=== PATIENT | female | born 1970 | race Caucasian/White ===

== ENCOUNTER 2020-03-19 15:15 | Outpatient (CLI) | payer OTHER, SELFPAY ==
--- NOTE | ~2020-03-19 | MM_ITS ---
EXAMINATION: MM screening [facility] BI w [facility] HISTORY: Screening mammogram TECHNIQUE: Craniocaudal and mediolateral oblique 3-D tomosynthesis images were obtained and synthetic 2-D images were generated. CAD analysis was submitted and interpreted. COMPARISON: 01/06/2019 diagnostic left digital mammogram and limited left breast ultrasound 12/22/2018 bilateral digital screening mammogram 11/17/2017 bilateral digital screening mammogram BREAST PARENCHYMAL COMPOSITION: The breasts are heterogeneously dense, which may obscure small masses . FINDINGS: Circumscribed 4.4 x 7 mm mass is noted in the inner mid left breast (craniocaudal Tomosynth esis image 43/89; MLO Tomosynthesis image 43/83). Approximately 1.9 cm circumscribed mass with halo sign in the inner aspect of the lower outer quadran t of the left breast, likely benign, most likely a cyst. Diagnostic left mammogram and left breast ultrasound examination are recommended. The heterogeneous dense stroma of each breast might obscure masses. Consider complete bilateral breas t ultrasound as clinically preferred by patient and referring physician. There is no evidence of suspicious mass, calcification, or architectural distortion to suggest malign femi in either breast otherwise. There has been no other suspicious interval change. IMPRESSION: 1. Left breast masses 2. Diagnostic left mammogram and left breast ultrasound examination are recommended. BI-RADS Category 0: Incomplete: Needs additional imaging evaluation. Reviewed, dictated and finalized at location A. IMPRESSION: 1. Left breast masses 2. Diagnostic left mammogram and left breast ultrasound examination are recomme nded. BI-RADS Category 0: Incomplete: Needs additional imaging evaluation.
== END 2020-03-19 15:16 | disposition home or self-care (01) ==
LOC: ANHIMG 15:16
PROVIDERS: PCP Internal Medicine; Visit Provider Student in an Organized Health Care Education/Training Program
DX: Z12.31 Encounter for screening mammogram for malignant neoplasm of breast (principal); R92.8 Other abnormal and inconclusive findings on diagnostic imaging of breast
CPT/HCPCS: 77063; 77067

== ENCOUNTER 2020-04-09 11:34 | Outpatient (CLI) | payer OTHER, SELFPAY ==
--- NOTE | ~2020-04-09 | MMUS_ITS ---
EXAMINATION: MM diagnostic mammo unilat LT, US breast LT limited HISTORY: Left breast mass on screening mammogram TECHNIQUE: Additional 3-D tomosynthesis images of the left breast were performed and synthetic 2-D im ages were generated. CAD analysis was submitted and interpreted. High resolution limited left breast ultrasound was performed. COMPARISON: 03/11/2020, 01/06/2019, 12/22/2018, 11/17/2017 FINDINGS: MAMMOGRAPHIC FINDINGS: There is a 9 mm oval, circumscribed, equal density mass in the posterior third of the breast at the 1 1:00 location 5 cm from the nipple. ULTRASOUND: There is a 10 mm x 3 mm oval, circumscribed, parallel, hypoechoic mass with no posterior features or internal vascularity at the 12:00 location 5 cm from the nipple. IMPRESSION: 1. Probably benign left breast mass. 2. Recommend 6 month follow-up left diagnostic mammogram and ultrasound. BI-RADS category 3, probably benign findings. Reviewed, dictated and finalized at location A. IMPRESSION: 1. Probably benign left breast mass. 2. Recommend 6 month follow-up left diagnostic mammogram and ultrasound. BI-RADS category 3, probably benign findings.
== END 2020-04-09 11:35 | disposition home or self-care (01) ==
PROVIDERS: PCP Internal Medicine; Visit Provider Student in an Organized Health Care Education/Training Program
DX: R92.8 Other abnormal and inconclusive findings on diagnostic imaging of breast (principal)
CPT/HCPCS: 76642; 77065

== ENCOUNTER 2020-10-18 12:16 | Outpatient (CLI) | payer OTHER, SELFPAY ==
--- NOTE | ~2020-10-18 | MMUS_ITS ---
EXAMINATION: MM diagnostic [facility] LT w [facility], US breast LT limited HISTORY: Six-month follow-up for probably benign left breast mass TECHNIQUE: Craniocaudal, mediolateral, and mediolateral oblique 3-D tomosynthesis images of the left breast were performed and synthetic 2-D images were generated. CAD analysis was submitted and interpr eted. High resolution limited left breast ultrasound was performed. COMPARISON: 04/09/2020, 03/19/2020, 01/06/2019, 12/22/2018 BREAST PARENCHYMAL COMPOSITION: The breasts are heterogeneously dense, which may obscure small masses . FINDINGS: MAMMOGRAPHIC FINDINGS: There is a stable 9 mm oval, circumscribed, equal density mass in the posterior third of the left sharda ast at the 11:00 location 5 cm from the nipple. There has been no suspicious interval change. No susp icious architectural distortion is identified. ULTRASOUND: There is a stable 9 mm x 3 mm oval, circumscribed, parallel, hypoechoic mass with no posterior featur es or internal vascularity at the 12:00 location 5 cm from the nipple. IMPRESSION: 1. Stable, probably benign left breast mass. 2. Recommend 6 month follow-up left diagnostic mammogram and ultrasound. BI-RADS category 3, probably benign findings. Reviewed, dictated and finalized at location A. HT INSPECTOR IMPRESSION: 1. Stable, probably benign left breast mass. 2. Recommend 6 month follow-up left diagnostic mammogram and ultrasound. BI-RADS category 3, probably benign findings.
== END 2020-10-18 12:17 | disposition home or self-care (01) ==
LOC: ANHIMG 12:17
PROVIDERS: PCP Internal Medicine; Visit Provider Student in an Organized Health Care Education/Training Program
DX: N63.20 Unspecified lump in the left breast, unspecified quadrant (principal)
CPT/HCPCS: 76642; 77061; 77065; G0279

== ENCOUNTER 2021-04-25 12:01 | Outpatient (CLI) | payer OTHER, SELFPAY ==
--- NOTE | ~2021-04-25 | MMUS_ITS ---
EXAMINATION: MM diagnostic [facility] BI w [facility], US breast LT limited HISTORY: Follow-up left breast mass TECHNIQUE: Additional 3-D tomosynthesis images of the breasts were performed and synthetic 2-D images were generated. CAD analysis was submitted and interpreted. High resolution Limited left breast ultr asound was performed. COMPARISON: Comparison to multiple prior studies sequentially, with oldest reviewed study dated 11/17. BREAST PARENCHYMAL COMPOSITION: The breasts are heterogenously dense, which may obscure small masses. FINDINGS: MAMMOGRAPHIC FINDINGS: The breasts are stable. No new masses, calcifications or architectural distortion in either breast to suggest malignancy. ULTRASOUND: Limited left breast ultrasound: There are mildly prominent ducts. There are subareolar cysts measurin g up to 8 mm. No suspicious masses to suggest malignancy. IMPRESSION: 1. No evidence for malignancy in either breast. 2. Routine yearly screening mammogram and regular clinical breast examination are recommended. BI-RADS Category 2: Benign finding(s). Reviewed, dictated and finalized at location A. IMPRESSION: 1. No evidence for malignancy in either breast. 2. Routine yearly screening mammogram and regular clinical breast examination a re recommended. BI-RADS Category 2: Benign finding(s).
== END 2021-04-25 12:02 | disposition home or self-care (01) ==
LOC: ANHIMG 12:02
PROVIDERS: PCP Internal Medicine; Visit Provider Student in an Organized Health Care Education/Training Program
DX: N63.20 Unspecified lump in the left breast, unspecified quadrant (principal); N60.02 Solitary cyst of left breast
CPT/HCPCS: 76642; 77061; 77062; 77065; 77066; G0279

== ENCOUNTER 2022-07-10 01:13 | Day surgery (SDC) | payer OTHER, SELFPAY ==
[2022-07-01 13:30] VITALS: BMI 22.9
[2022-07-10 08:07] VITALS: BP 115/71; PULSE 76; RESP 18; TEMP 36.1; O2SAT 100
--- NOTE | 2022-07-10 08:10 | P.PNAN_ITS ---
Anes - Initial Pre Proc Eval Procedure: Operation Date: 07/10/22 09:30 Proposed Procedures p Screening Colonoscopy - Lenin Koch MD Date/Time: 07/10/22 08:10 Surgeon: Lenin Koch MD Pre Op Diagnosis: Neoplasm Screening Patient Data Age: 51 Gender: F Height: 1.78 m Weight: 80.3 kg Last Vital Signs Temp 36.1 C L 07/10/22 08:07 Pulse 76 07/10/22 08:07 Resp 18 07/10/22 08:07 BP 115/71 07/10/22 08:07 Pulse Ox 100 07/10/22 08:07 O2 Del Method Room Air 07/10/22 08:07 Allergies Allergy/AdvReac Type Severity Reaction Status Date / Time No Known Allergies Allergy Unknown Verified 07/10/22 08:06 Home Medications Medication Instructions Recorded Confirmed Type B-complex with vitamin C 1 cap PO DAILY 04/08/21 07/01/22 History cholecalciferol (vitamin D3) 50 50 mcg PO DAILY 04/08/21 07/01/22 History mcg (2,000 unit) capsule norethindrone acetate 1 mg-ethinyl See Rx Instructions .Route 05/12/22 07/01/22 Rx estradiol 20 mcg tablet (Junel) .COMPLEX #84 tabs Patient hx anesthesia problems: none Family hx anesthesia problems: none Results Review: All pre-operative results and documents have been reviewed as part of the pre- operative evaluation. PMFSH Past Medical History Medical History Elevated lipids Migraines Thyroid disease Vaginal delivery x 2 Surgical History Surgical History [place] teeth extracted Family History Family History Father Diabetes mellitus, Onset Age: 72 Family history of liver disease, Onset Age: 72 Mother Family history of hypercholesterolemia Hypertension Patient's mother is in good health Social History Social History Smoking status: Never smoker Smoking end date: 08/23/04 Alcohol intake: current Drinks per week: 2 Substance use: never Substance use type: does not use Living arrangements: with family Spiritual care concerns: No Anes - Eval Final PreProcedure Day of Procedure 07/10/22 08:10 Patient weight: overweight Heart: regular rate and rhythm Lungs: clear to auscultation Airway: Mallampati scale class II Neurological: alert and oriented Last oral intake: >/= 8 hours ASA classification: II Emergent: no Anesthetic plan: proceed Anesthesia type and monitoring: general GIVS and standard monitoring Results Review: All pre-operative results and documents have been reviewed as part of the pre-operative evaluation. Informed Consent: The patient's anesthetic plan and its attendant risks and benefits were discussed with the patient/family/POA. Questions were solicited and answers provided to the satisfaction of the patient/family/POA.
[2022-07-10] MEDS: LACTATED RINGERS 1,000 ML 150 ML IV CONT (08:33)
--- NOTE | 2022-07-10 08:34 | SUR.PREOP ---
Pt unable to urinate. Urine test waived per anesthesiologist Dr. Mcconnell.
--- NOTE | 2022-07-10 08:38 | PM.HPGS ---
History of Present Illness History of Present Illness Consent: Risks, benefits, and alternatives have been discussed and questions answered. Patient agrees to proceed with procedure. Chief complaint: Neoplasm Screening Narrative: Michelle Mcginnis is a 51 year old female here for first screening colonoscopy Review of Systems Constitutional: Constitutional: Denies headache(s) and Denies weakness Eyes: Eyes: Denies blurry vision ENT: Reports Normal hearing present, Denies headache(s) and Denies neck pain Cardiovascular: Cardiovascular: Denies chest pain and Denies dyspnea Respiratory: Respiratory: Denies dyspnea Gastrointestinal: Gastrointestinal: Reports no additional gastrointestinal complaints Genitourinary: Genitourinary: Denies dysuria Musculoskeletal: Musculoskeletal: Denies neck pain Integumentary/Breasts: Skin/Breast: Denies dry skin Neurologic: Reports Normal hearing present, Denies headache(s) and Denies weakness Psychiatric: Psychiatric: Denies anxiety Endocrine: Endocrine: Denies change in body appearance Hematologic/Lymphatic: Hematologic/Lymphatic: Denies easy bleeding Allergic/Immunologic: Allergic/Immunologic: Denies urticaria PMF Past Medical History Medical History (Updated 07/10/22 @ 08:38 by Lenin Koch MD) Colon cancer screening Elevated lipids Migraines Thyroid disease Vaginal delivery x 2 Surgical History Surgical History [place] teeth extracted Family History Family History Father Diabetes mellitus, Onset Age: 72 Family history of liver disease, Onset Age: 72 Mother Family history of hypercholesterolemia Hypertension Patient's mother is in good health Social History Social History Smoking status: Never smoker Smoking end date: 08/23/04 Alcohol intake: current Drinks per week: 2 Substance use: never Substance use type: does not use Living arrangements: with family Spiritual care concerns: No Meds Home Medications and Allergies Home Medications Medication Instructions Recorded Confirmed Type B-complex with vitamin C 1 cap PO DAILY 04/08/21 07/01/22 History cholecalciferol (vitamin D3) 50 50 mcg PO DAILY 04/08/21 07/01/22 History mcg (2,000 unit) capsule norethindrone acetate 1 mg-ethinyl See Rx Instructions .Route 05/12/22 07/01/22 Rx estradiol 20 mcg tablet () .COMPLEX #84 tabs Allergies Allergy/AdvReac Type Severity Reaction Status Date / Time No Known Allergies Allergy Unknown Verified 07/10/22 08:06 Vital Signs Vital Signs - 24 hr 07/10/22 08:07 Temperature 97 F L Pulse Rate 76 Respiratory Rate 18 Blood Pressure 115/71 Pulse Oximetry 100 Oxygen Delivery Room Air Exam Const: General: comfortable and no acute distress HENMT: Face/Nose/Sinus: Normal nares present Eyes: General: appearance normal, both eyes and all related structures Neck: Neck: no JVD Resp: Auscultation: clear to auscultation bilaterally Cardio: Rate: regular rate Rhythm: regular rhythm GI: Inspection: non-distended GI Palp: Yes Soft to palpation Skin: General skin exam: normal color Neuro: General: gait normal Speech: normal speech Extrem: General: normal to inspection Psych: Mental Status: mental status grossly normal Assessment and Plan Assessment and plan (1) Colon cancer screening: Code(s): Z12.11 - Encounter for screening for malignant neoplasm of colon Status: Acute Assessment and Plan: colonoscopy
[2022-07-10 09:00] VITALS: BP 106/67; PULSE 83; RESP 23; O2SAT 100
[2022-07-10 09:10] VITALS: BP 110/69; PULSE 61; RESP 19; O2SAT 100
[2022-07-10 09:20] VITALS: BP 116/67; PULSE 70; RESP 18; O2SAT 98
== END 2022-07-10 09:49 | disposition home or self-care (01) ==
PROVIDERS: PCP Internal Medicine; Visit Provider Internal Medicine Gastroenterology
PROC: 0DJD8ZZ Inspection of Lower Intestinal Tract, Via Natural or Artificial Opening Endoscopic (ICD-10-PCS; CPT 45378; principal; 2022-07-10 09:30)
DX: Z12.11 Encounter for screening for malignant neoplasm of colon (principal); D12.2 Benign neoplasm of ascending colon; K63.5 Polyp of colon; K64.8 Other hemorrhoids
CPT/HCPCS: 45385; 88305; J2704; J7120

== ENCOUNTER 2022-07-25 09:54 | Outpatient (CLI) | payer OTHER, SELFPAY ==
--- NOTE | ~2022-07-25 | MM_ITS ---
EXAMINATION: MM screening [facility] BI w [facility] HISTORY: Screening mammogram TECHNIQUE: Craniocaudal and mediolateral oblique 3-D tomosynthesis images were obtained and synthetic 2-D images were generated. CAD analysis was submitted and interpreted. COMPARISON: 04/25/2021, 10/18/2020, 04/09/2020, 03/19/2020 BREAST PARENCHYMAL COMPOSITION: The breasts are heterogeneously dense, which may obscure small masses . FINDINGS: A stable mass in the upper inner quadrant of the left breast is considered benign given the lack of interval change. No suspicious mass, calcification, or architectural distortion are identifi ed in either breast to suggest malignancy. There has been no suspicious interval change. IMPRESSION: 1. No mammographic evidence of malignancy. 2. Recommend routine screening mammography in one year. BI-RADS Category 2: Benign finding(s). Reviewed, dictated and finalized at location A. 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
== END 2022-07-25 09:55 | disposition home or self-care (01) ==
PROVIDERS: PCP Internal Medicine; Visit Provider Student in an Organized Health Care Education/Training Program
DX: Z12.31 Encounter for screening mammogram for malignant neoplasm of breast (principal)
CPT/HCPCS: 77063; 77067

== ENCOUNTER 2023-08-03 08:28 | Outpatient (CLI) | payer OTHER, SELFPAY ==
--- NOTE | ~2023-08-03 | MM_ITS ---
EXAMINATION: MM screening [facility] BI w [facility] HISTORY: Screening TECHNIQUE: Craniocaudal and mediolateral oblique 3-D tomosynthesis images were obtained and synthetic 2-D images were generated. CAD analysis was submitted and interpreted. COMPARISON: Comparison to multiple prior studies sequentially, with oldest reviewed study dated 06/24. BREAST PARENCHYMAL COMPOSITION: Breast composed of scattered areas of fibroglandular density FINDINGS: There are developing asymmetries in the mid outer aspect of the right breast, middle third and central aspect of the left breast middle third, best seen on CC views. IMPRESSION: 1. Developing bilateral breast asymmetries. 2. Additional mammographic views and possible breast ultrasound are recommended. BI-RADS Category 0: Incomplete: Needs additional imaging evaluation. Reviewed, dictated and finalized at location A. O FINISHER IMPRESSION: 1. Developing bilateral breast asymmetries. 2. Additional mammographic views and possible breast ultrasound are recommended . BI-RADS Category 0: Incomplete: Needs additional imaging evaluation.
== END 2023-08-03 08:29 | disposition home or self-care (01) ==
PROVIDERS: PCP Internal Medicine; Visit Provider Obstetrics & Gynecology
DX: Z12.31 Encounter for screening mammogram for malignant neoplasm of breast (principal); R92.8 Other abnormal and inconclusive findings on diagnostic imaging of breast
CPT/HCPCS: 77063; 77067

== ENCOUNTER 2023-08-09 10:26 | Outpatient (CLI) | payer OTHER, SELFPAY ==
--- NOTE | ~2023-08-09 | MMUS_ITS ---
EXAMINATION: MM diagnostic [facility] BI w [place], US breast BI complete HISTORY: Developing bilateral mammographic asymmetries reported on 08/03/2023 screening mammogram exa mination TECHNIQUE: Additional 3-D tomosynthesis images of both breasts were performed and synthetic 2-D image s were generated. CAD analysis was submitted and interpreted. High resolution bilateral complete [address] ultrasound examination could all 4 quadrants and subareolar areas of each breast was performed. COMPARISON: 08/03/2023, 07/25/2022 bilateral screening mammogram examinations 04/25/2021 diagnostic left mammogram and limited left breast ultrasound BREAST PARENCHYMAL COMPOSITION: The breasts are heterogeneously dense, which may obscure small masses . FINDINGS: MAMMOGRAPHIC FINDINGS: No suspicious mass, architectural distortion, malignant calcification, skin thickening or retraction of either breast is detected. ULTRASOUND: Right breast: 8:00 near nipple: 4.5 x 6.5 mm simple cyst with through transmission posterior enhancement. No suspicious mass or shadowing of the right breast is detected. Left breast: Left breast subareolar area: Circumscribed oval 7.5 x 8.6 mm hypoechoic lesion with through transmiss ion posterior enhancement, no internal vascularity, benign in appearance, stable since 04/25/2021 No suspicious mass or shadowing is detected. IMPRESSION: 1. Benign findings 2. Routine annual mammographic screening is recommended BI-RADS Category 2: Benign finding(s). Reviewed, dictated and finalized at location A. ENTRY EMAIL PROCESSOR IMPRESSION: 1. Benign findings 2. Routine annual mammographic screening is recommended BI-RADS Category 2: Benign finding(s).
== END 2023-08-09 10:27 | disposition home or self-care (01) ==
LOC: ANHIMG 10:27
PROVIDERS: PCP Internal Medicine; Visit Provider Obstetrics & Gynecology
DX: R92.8 Other abnormal and inconclusive findings on diagnostic imaging of breast (principal)
CPT/HCPCS: 76641; 77062; 77066; G0279

== ENCOUNTER 2024-10-27 07:46 | Outpatient (CLI) | payer OTHER, SELFPAY ==
--- NOTE | ~2024-10-27 | MM_ITS ---
EXAMINATION: MM screening faust[facility] BI w [facility] HISTORY: Screening TECHNIQUE: Craniocaudal and mediolateral oblique 3-D tomosynthesis images were obtained and synthetic 2-D images were generated. CAD analysis was submitted and interpreted. COMPARISON: 08/09/2023 and dating back to 03/19/2020 BREAST PARENCHYMAL COMPOSITION: Dense: Heterogeneously dense parenchymal pattern which may obscure sm all masses. FINDINGS: Punctate calcifications are detected bilaterally, stable and benign in appearance. [place] tration of multiple well-circumscribed asymmetries, stable dating back to 2020 and representing simpl e cysts on ultrasound. Otherwise stable parenchymal pattern without suspicious microcalcifications, architectural distortion masses or significant asymmetry. IMPRESSION: 1. No mammographic/tomographic evidence of malignancy. 2. Recommend routine screening mammography in one year. BI-RADS Category 2: Benign finding(s). Reviewed, dictated and finalized at location A. [facility]
--- OUTSIDE RECORDS SUMMARY | 2024-10-27 07:52 | XMS_ITS | Clinical Summary ---
Author Organization [facility] Address [address] [place] [address] Care Team Providers Care Head Sawyer Name Role Phone Dyllan Campos MD Primary Care Provider [phone] Allergies No known active allergies Medications 09/11 1-20 MG-MCG tablet Take 1 tablet by mouth daily. 3 9 Active Rimegepant Sulfate (NURTEC OR) Take 75 mg by mouth as needed. Active ibuprofen (MOTRIN) 200 MG tablet Take 1 tablet (200 mg total) by mouth every 6 (six) hours as needed for Pain. Active ondansetron (ZOFRAN) 4 MG tablet Take 1 tablet (4 mg total) by mouth every 8 (eight) hours as needed for Nausea. 20 tablet 4 Active gabapentin (NEURONTIN) 300 MG capsule Take 2 capsules (600 mg total) by mouth 3 (three) times daily. Active HYDROcodone-lilly taminophen (NORCO) 7.5-325 MG tablet take 1 tablet by mouth 3 times a day as needed for pain 4 Active cyclobenzaprine (FLEXERIL) 10 MG tablet TAKE 1 TABLET BY MOUTH 3 TIMES A DAY NEEDED FOR BACK SPASMS 4 Active oseltamivir (TAMIFLU) 75 MG capsuleIndicati ons:Exposure to the flu Take 1 capsule (75 mg total) by mouth daily for 7 days. 7 capsule 5 10/11/19 25 Active Problems Problem Noted Date Diagnosed Date Acute pain of right shoulder 10/11/2024 Lumbar radiculopathy 08/10/2024 Low back pain 12/14/2023 Neck pain 05/07/2023 Functional diarrhea 10/19/2022 Epigastric pain 10/19/2022 BMI 28.0-28.9,adult 09/05/2019 Fatigue, unspecified type 09/05/2019 Acute non-recurrent maxillary sinusitis 10/14/19 19 Hypothyroidism 01/06/2014 Overview (06/07/2024): HYPOTHYROIDISM NOS Subacute thyroiditis 01/06/2014 Overview (06/07/2024): SUBACUTE THYROIDITIS Migraine headache 11/01/2012 Resolved Problems Problem Noted Date Diagnosed Date Resolved Date Health care maintenance 09/05/2019 030 01/2023 Encounters Date Type Department Care Team Description 10/24/2024 10:15 AM BUILDING PRINCIPAL - 10/24/2024 11:59 PM BUILDING PRINCIPAL Hospital Encounter [facility] Outpatient Rehab [address] [place] [address] Dyllan Campos MD Irving, Christy L, PT Shoulder Pain Discharge Disposition: Home or Self Care (Routine Discharge) 10/24/2024 Travel 10/20/2024 9:00 AM BUILDING PRINCIPAL - 10/20/2024 11:59 PM BUILDING PRINCIPAL Hospital Encounter [facility] Outpatient Rehab [address] [place] [address] Elida Serrano, PT Dyllan Campos MD Shoulder Pain Discharge Disposition: Home or Self Care (Routine Discharge) 10/20/2024 Travel 10/18/2024 8:12 AM BUILDING PRINCIPAL - 10/18/2024 11:59 PM BUILDING PRINCIPAL Hospital Encounter [facility] Outpatient Rehab [address] [place] [address] Dyllan Campos MD Gerling, Savannah L, INSTRUMENT MECHANIC Shoulder Pain Discharge Disposition: Home or Self Care (Routine Discharge) 10/18/2024 Travel 10/13/2024 9:42 AM BUILDING PRINCIPAL - 10/13/2024 11:59 PM BUILDING PRINCIPAL Hospital Encounter [facility] Outpatient Rehab [address] [place] [address] Dyllan Campos MD Meyer, Beverly L, PT Shoulder Pain Discharge Disposition: Home or Self Care (Routine Discharge) 10/13/2024 Travel 10/11/2024 9:54 AM BUILDING PRINCIPAL - 10/11/2024 11:59 PM BUILDING PRINCIPAL Hospital Encounter [facility] Outpatient Rehab [address] [place] [address] Elida Serrano, PT Dyllan Campos MD Shoulder Pain Discharge Disposition: Home or Self Care (Routine Discharge) 10/11/2024 Travel 10/04/2024 Orders Only [facility] Internal [address] [phone] Dyllan Campos MD 10/04/2024 Orders Only [facility] Internal [address] [phone] Dyllan Campos MD 10/03/2024 Telephone [facility] [address] [phone] Dyllan Campos MD Question 09/22/2024 Scan [employer] INFO SRVCS Scanned, [facility] 09/15/2024 MyChart Message Enc [address] [phone] Dyllan Campos MD X-ray on my shoulder 09/13/2024 4:40 PM BUILDING PRINCIPAL - 09/13/2024 5:00 PM BUILDING PRINCIPAL Surgery [facility] [place] [address] [id number] Stacy Scott MD INJECTION EPIDURAL LUMBAR [id number] 09/13/2024 3:06 PM BUILDING PRINCIPAL - 09/13/2024 4:10 PM BUILDING PRINCIPAL Hospital Encounter [facility] [place] [address] [id number] Stacy Scott MD Discharge Disposition: Home or Self Care (Routine Discharge) 09/13/2024 Travel 09/12/2024 9:05 AM BUILDING PRINCIPAL - 09/12/2024 11:59 PM BUILDING PRINCIPAL Hospital Encounter [facility] Diagnostic Imaging [address] [place] [address] Dyllan Campos MD Discharge Disposition: Home or Self Care (Routine Discharge) 09/12/2024 9:00 AM BUILDING PRINCIPAL Laboratory Only [facility] Internal [facility] [address] [place] [address] Dyllan Campos MD 09/12/2024 7:40 AM BUILDING PRINCIPAL Office Visit [facility] [address] [place] [address] Dyllan Campos MD Pain (Follow up back pain/ wanting lab work) 09/12/2024 Travel 08/10/2024 8:08 AM BUILDING PRINCIPAL - 08/10/2024 11:59 PM BUILDING PRINCIPAL Hospital Encounter [facility] [place] [address] [id number] Antonio Marquez, MIGUEL Discharge Disposition: Home or Self Care (Routine Discharge) 08/10/2024 Travel from Last 3 Months Immunizations Name Administration Dates Next Due Flublok (Quadrivalent) 05/27/2020 Fluzone (IIV3, Trivalent, 0. 5 ML Prefilled Syringe) 09/12/2024 Fluzone 6 Months+ (5.0 mL Mu lti Dose Vial) 05/24/2019 Influenza (Generic) 06/06/2016,06/07/2015 Influenza Adult (Generic) 06/05/2023,09/2021,06/25/2021, 019,06/06/2018,05/07/2017 MODERNA COVID-19 (12+) MRNA, LNP-S, PF, 100 MCG/ 0.5 ML DOSE 12/10/2020,11/12/2020 Tdap (Adacel) 05/24/2019 Tdap (Boostrix) 05/24/2019 Family History Medical History Relation Comments Cancer Father liver cancer Father elevated blood sugar Mother Relation Status Comments Father Mother Alive Social History Tobacco Use Types Packs/Day Years Used Date Smoking Tobacco: Former Cigarettes 0.3 15 0 08/23/1988 - 08/23/2003 Smokeless Tobacco: Never Tobacco Cessation:Counseling Given: No Alcohol Use Standard Drinks/Week Comments Yes 0 (1 standard drink = 0.6 oz pur e alcohol) Socially PHQ-2 Answer Date Recorded Patient Health Questionnaire-2 Score 0 09/12/2024 Education Answer Date Recorded What is the highest level of school you have completed or the highest degree you have received? 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 Not on file Last Filed Vital Signs Vital Sign Reading Time Taken Comments Blood Pressure 161/99 09/13/2024 3:59 PM BUILDING PRINCIPAL Pulse 78 09/13/2024 3:57 PM BUILDING PRINCIPAL Temperature 36.3 C (97.3 F) 09/13/2024 3:36 PM BUILDING PRINCIPAL Respiratory Rate 18 09/13/2024 3:57 PM BUILDING PRINCIPAL Oxygen Saturation 98% 09/13/2024 3:57 PM BUILDING PRINCIPAL Inhaled Oxygen Concentration - - Weight 89.9 kg (198 lb 3.2 oz) 09/13/2024 3:36 P M BUILDING PRINCIPAL Height 177.8 cm (5' 10 ) 09/13/2024 3:36 PM BUILDING PRINCIPAL Body Mass Index 28.44 09/13/2024 3:36 PM BUILDING PRINCIPAL Plan of Treatment Upcoming Encounters Date Type Department Care Team (Late st Contact Info) Description 10/27/2024 11:15 AM BUILDING PRINCIPAL Appointment [facility] Outpatient Rehab [address] [place] [address] [place] [address] [address] [address] [place] [address] [facility] [place] [address] 10/31/2024 10:00 AM CDT Appointment [facility] Outpatient Rehab [address] [place] [address] [place] [address] [address] [place] [address] [place] [address] 11/02/2024 9:00 AM CDT Appointment [facility] Outpatient Rehab [address] [place] [address] [place] [address] [address] Yamileth Elise, INSTRUMENT MECHANIC 11/08/2024 10:00 AM CDT Appointment [facility] Outpatient Rehab [address] [place] [address] [place] [address] [address] [place] [address] [place] [address] 11/16/2024 8:00 AM CDT Appointment [facility] Outpatient Rehab [address] [place] [address] [place] [address] [place] [address] 03/13/2025 7:40 AM CDT Office Visit [facility] - [place] [address] [place] [address] [place] [address] [facility] [address] [place], [place] [id number] Health Maintenance Due Date Last Done Comments Colorectal Cancer Screening Colonoscopy (10 Years) 1971 Hepatitis C 1989 Hepatitis B Vaccines (1 of 3 - 19+ 3-dose series) 1990 Cervical Cancer Screening Pap with HPV Testing (Age 30 to 64) Every 5 Years 2001 Zoster Vaccines (1 of 2) 2021 Annual Physical 06/23/2022 06/23/2021 COVID-19 Vaccine ( season) 2024 08/18/2021, 12/10/2020, 11/12/2020 Mammogram Screening 07/25/2024 07/25/2022, 10/18/2020, 10/18/2020, Additional history exists Cervical Cancer Screening Pap Smear (Age 30 to 64) Every 3 Years 06/19/2027 06/19/2024 Cervical Cancer Screening with HPV 06/19/2027 DTaP, Tdap and Td Vaccines (3 - Td or Tdap) 05/24/2029 05/24/2019, 05/24/2019 Influenza Adult Completed 09/12/2024, 05/23, 06/24/2022, Additional history exists PHQ-2 (Physician [place]) Completed 09/12/2024 Meningococcal B Vaccine Aged Out No l onger eligible based on patient's age to complete this topic Meningococcal Vaccine Aged Out No jenaro elida eligible based on patient's age to complete this topic Pneumococcal Vaccine: Pediatrics (0 to 5 Years) and At-Risk Patients (6 to 64 Years) Aged Out No longer eligible based on patient's age to complete this topic RSV Immunizations Under 20 Months Aged Out No longer eligible based on patient's age to complete this topic Procedures Procedure Name Priority Date/Time Associated Diagnosis Comments NJX INTERLAMINAR LMBR/SAC 09/13/2024 3:55 PM BUILDING PRINCIPAL Lumbar radiculopathy XR PAIN CLINIC C-ARM Today 09/13/2024 3:28 PM BUILDING PRINCIPAL XR SHOULDER RT 3V After Office Visit 09/12/2024 9:15 AM BUILDING PRINCIPAL Acute pain of right shoulder COLLECTION VENOUS BLOOD VENIPUNCTURE Routine 09/12/2024 9:00 AM BUILDING PRINCIPAL Mixed hyperlipidemia Screening for blood disease Screening for thyroid disorder CBC W/DIFF AUTOMATED Routine 09/12/2024 8:53 AM BUILDING PRINCIPAL Screening for blood disease TSH W/REFLEX Routine 09/12/2024 8:53 AM BUILDING PRINCIPAL Screening for thyroid disorder LIPID PANEL Routine 09/12/2024 8:53 AM BUILDING PRINCIPAL Mixed hyperlipidemia COMPREHENSIVE METABOLIC PANEL Routine 09/12/2024 8:53 AM BUILDING PRINCIPAL Mixed hyperlipidemia MAMMOGRAM GENERIC (SCAN ORDER) 07/25/2022 from Last 3 Months or Most Recently Relevant to Health Maintenance Results * XR PAIN CLINIC C-ARM (09/13/2024 3:28 PM BUILDING PRINCIPAL) Narrative Radiology, Technologist - 09/13/2024 3:28 PM BUILDING PRINCIPAL This report does not contain a radiologist's interpretation. Please review associated procedure and/or operative report. Stacy Scott MD GENERAL IMAGING Final Result * XR SHOULDER RT 3V (09/12/2024 9:15 AM BUILDING PRINCIPAL) Anatomical Region Laterality Modality Shoulder Radiographic Vanessa ging 09/12/2024 9:24 AM BUILDING PRINCIPAL Impressions 09/12/2024 9:25 AM BUILDING PRINCIPAL IMPRESSION: No acute bony abnormality about the right shoulder. If symptoms persist and further imaging evaluation is needed, MRI recommended. Ordered By: DYLLAN CAMPOS Interpreted By: Oswaldo Bang MD, 09/12/2024 9:24 AM Narrative 09/12/2024 9:25 AM BUILDING PRINCIPAL [facility] [address] [place] [address] Procedure(s): XR SHOULDER RT 3V Date of service: 09/12/2024 9:07 AM Provided clinical information: 53 years, Female, R/shoulder pain Procedure and materials: 3 views right shoulder. Comparison studies: None. Findings: No fracture, dislocation or acute bony abnormality about the right shoulder. No lytic or sclerotic changes are present. No calcific tendinitis. Right lung field is clear. Procedure Note Oswaldo Bang MD - 09/12/2024 [facility] [address] [place] [address] Procedure(s): XR SHOULDER RT 3V Date of service: 09/12/2024 9:07 AM Provided clinical information: 53 years, Female, R/shoulder pain Procedure and materials: 3 views right shoulder. Comparison studies: None. Findings: No fracture, dislocation or acute bony abnormality about the rightshoulder. No lytic or sclerotic changes are present. No calcifictendinitis. Right lung field is clear. IMPRESSION: No acute bony abnormality about the right shoulder. If symptoms persist and further imaging evaluation is needed, MRIrecommended. Ordered By: DYLLAN CAMPOS Interpreted By: Oswaldo Bang MD, 09/12/2024 9:24 AM Dyllan Campos MD GENERAL IMAGING Final Resul t * TSH W/REFLEX (09/12/2024 8:53 AM BUILDING PRINCIPAL) TSH 0.62 mIU/L [facility] Comment: Reference Range > or = 20 Years 0.40-4.50 Ranges First trimester 0.26-2.66 Second trimester 0.55-2.73 Third trimester 0.43-2.91 09/12/2024 8:53 AM BUILDING PRINCIPAL 09/13/2024 2:26 AM BUILDING PRINCIPAL Narrative Resulting Agency Comment Performing Organization Information: Site ID: SL Name: [email or web address] Address: [address] [place] [address] Director: Sabiha Paula Dyllan Campos MD LABORATORY Final Resul t [facility] [place] [place] [address] [address] [facility] [address], * COMPREHENSIVE METABOLIC PANEL (09/12/2024 8:53 AM BUILDING PRINCIPAL) Pathologist [facility] GLUCOSE 97 65 - 99 mg/dL [place] Comment: Fasting reference interval BUN 10 7 - 25 mg/dL [place] CREATININE S/P/B 0.76 0.50 - 1.03 mg/dL [place] GFR ESTIMATE 94 > OR = 60 mL/min/1. 73m2 [place] BUN CREATININE RATIO SEE NOTE: (calc) [place] Comment: Not Reported: BUN and Creatinine are within reference range. SODIUM S/P/B 140 135 - 146 mmol/L [place] POTASSIUM S/P/B 4.6 3.5 - 5.3 mmol/L [place] CHLORIDE S/P/B 104 98 - 110 mmol/L [place] CO2 26 20 - 32 mmol/L [place] CALCIUM S/P/B 9.0 8.6 - 10.4 mg/dL [place] TOTAL PROTEIN S/P/B 6.7 6.1 - 8.1 g/dL [place] ALBUMIN S/P/B 4.2 3.6 - 5.1 g/dL [place] GLOBULIN 2.5 1.9 - 3.7 g/dL (calc) [place] ALBUMIN/GLOBULIN RATIO 1.7 1.0 - 2.5 (calc) [place] BILIRUBIN TOTAL S/P/B 0.2 0.2 - 1.2 mg/dL [facility], [place] ALKALINE PHOSPHATASE S/P/B 48 37 - 153 U/L [facility] AST 10 10 - 35 U/L [place] ALT 9 6 - 29 U/L [place] 09/12/2024 8:53 AM BUILDING PRINCIPAL 09/13/2024 2:26 AM BUILDING PRINCIPAL Narrative Resulting Agency Comment Performing Organization Information: Site ID: SL Name: [facility] Address: [facility] [place] [address] Director: Sabiha Paula Dyllan Campos MD LABORATORY Final Resul t [facility] [address] [address], * (ABNORMAL) LIPID PANEL (09/12/2024 8:53 AM BUILDING PRINCIPAL) CHOLESTEROL 228(H) <200 mg/dL [place] HDL 60 > OR = 50 mg/dL [place] TRIGLYCERIDES 205(H) <150 mg/dL [place] Comment: If a non-fasting specimen was collected, consider repeat triglyceride testing on a fasting specimen if clinically indicated. Estefanía et al. J. of Clin. Lipidol. 2015;9:129-169. LDL (CALCULATED) 134(H) mg/dL (calc) [place] Comment: Reference range: <100 Desirable range <100 mg/dL for primary prevention; <70 mg/dL for patients with CHD or diabetic patients with > or = 2 CHD risk factors. LDL-C is now calculated using the Kelly calculation, which is a validated novel method providing better accuracy than the Friedewald equation in the estimation of LDL-C. Lico FRANKS et al. VU. 2013;310(19): 4285-8618 (http://education.[employer].Zighra/faq/ASO686) CHOL/HDL RATIO 3.8 <5.0 (calc) [place] NON HDL CHOLESTEROL 168(H) <130 mg/dL (calc) [place] Comment: For patients with diabetes plus 1 major ASCVD risk factor, treating to a non-HDL-C goal of <100 mg/dL (LDL-C of <70 mg/dL) is considered a therapeutic option. 09/12/2024 8:53 AM BUILDING PRINCIPAL 09/13/2024 2:26 AM BUILDING PRINCIPAL Narrative Resulting Agency Comment Performing Organization Information: Site ID: SL Name: [facility] Address: [facility] [place] [address] Director: Sabiha Paula Dyllan Campos MD LABORATORY Final Resul t [facility] [place], [place] [id number] [place] [address], * (ABNORMAL) CBC W/DIFF AUTOMATED (09/12/2024 8:53 AM BUILDING PRINCIPAL) WBC 6.0 3.8 - 10.8 Thousand/u L [place] RBC 4.00 3.80 - 5.10 Million/uL [place] HGB 11.8 11.7 - 15.5 g/dL [place] HCT 37.3 35.0 - 45.0 % [place] MCV 93.3 80.0 - 100.0 fL [place] MCH 29.5 27.0 - 33.0 pg [place] MCHC 31.6(L) 32.0 - 36.0 g/dL [place] Comment: For adults, a slight decrease in the calculated MCHC value (in the range of 30 to 32 g/dL) is most likely not clinically significant; however, it should be interpreted with caution in correlation with other red cell parameters and the patient's clinical condition. RDW 12.0 11.0 - 15.0 % [place] PLT 215 140 - 400 Thousand/u L [place] MPV 11.3 7.5 - 12.5 fL [facility] DIAGNOSTICS-[facility] [place] ABS. NEUTROPHILS 3,138 1,500 - 7,800 cells/uL [facility] [place] ABS. LYMPHOCYTES 2,262 850 - 3,900 cells/uL [facility] ABS. MONOCYTES 480 200 - 950 cells/uL [facility] [place] ABS. EOSINOPHILS 102 15 - 500 cells/uL [facility] ABS. BASOPHILS 18 0 - 200 cells/uL [facility] [place] SEG NEUTROPHILS 52.3 % [facility] [place] LYMPHOCYTES 37.7 % [facility] [place] MONOCYTES 8.0 % [facility] [place] EOSINOPHILS 1.7 % [facility] BASOPHILS 0.3 % [facility] 09/12/2024 8:53 AM BUILDING PRINCIPAL 09/13/2024 2:26 AM BUILDING PRINCIPAL Narrative Resulting Agency Comment Performing Organization Information: Site ID: [place] Name: [facility] Address: [address] [place] [id number] Director: Sabiha Paula Dyllan Campos MD LABORATORY Final Resul t [facility] [address] [address], * MAMMOGRAM GENERIC (07/25/2022) Anatomical Region Laterality Modality Other 07/25/2022 [facility] Scanned SCANNING Final Resu lt from Last 3 Months or Most Recently Relevant to Health Maintenance Insurance [facility] Care Teams Head Sawyer Relationship Specialty Start [place] [address] [address] PCP - General INTERNAL MEDICINE 06/09/24
--- OUTSIDE RECORDS SUMMARY | 2024-10-27 07:52 | XMS_ITS | Encounter Summary ---
Author Organization [facility] Address [address] [place] [address] Care Team Providers Care Rivet Tosser Name Role Phone Joyce Riggins NP Primary Care Provider [phone] Ish Rudd MD Primary Care Provider U navailable None, Provider Primary Care Provider Marcela Freed MD Primary Care Provider [phone] Encounter Details Date Type Department Care Team (Late st Contact Info) Description 11/06/2022 Cvergenxt Message Enc [facility] Family [facility] Internal Medicine [facility] [id number] [place] [phone] Ish Rudd MD HIDAbdullahi Scan Social History Tobacco Use Types Packs/Day Years Used Date Smoking Tobacco: Former Cigarettes 0.3 15 0 08/23/1988 - 08/23/2003 Smokeless Tobacco: Never Alcohol Use Standard Drinks/Week Comments Yes 0 (1 standard drink = 0.6 oz pur e alcohol) Socially PHQ-2 Answer Date Recorded PHQ-2 Score - If the patient scores above 3, please move on to questions 3-9 0 06/23/2021 Education Answer Date Recorded What is the highest level of school you have completed or the highest degree you have received? 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 No / Unsure 10/29/2022 7:56 AM [employer] documented as of this encounter Plan of Treatment Upcoming Encounters Date Type Department Care Team (Late st Contact Info) Description 10/27/2024 11:15 AM [employer] Appointment [facility] [address] [place] [address] [place] [address] [address] [place] [address] [place] [address] 10/31/2024 10:00 AM CDT Appointment [facility] [address] [place] [address] [place] [address] [address] [place] [address] [place] [address] 11/02/2024 9:00 AM CDT Appointment [facility] [address] [place] [address] [place] [address] [address] Yamileth Elise, SAW 11/08/2024 10:00 AM CDT Appointment [facility] [address] [place] [address] [place] [address] [facility] [address] [place] [address] [place] [address] [place] [address] 11/16/2024 8:00 AM CDT Appointment [facility] [address] [place] [address] [place] [address] [place], [place] [id number] 03/13/2025 7:40 AM CDT Office Visit [facility] Family [facility] Internal Medicine [facility] [address] [place] [address] [place] [address] [address] documented as of this encounter Visit Diagnoses Not on filedocumented in this encounter Additional Health Concerns Infection Onset Date Last Indicated Resolved Time COVID-19 Rule Out 09/24/2023 09/24/2023 09/24/2023 8:25 AM [employer] Assessment Noted Time PHQ-9 Depression Total Score: 0 06/23/20 21 9:26 AM CDT documented as of this encounter Care Teams Rivet Tosser Relationship Specialty Start [place] [address] [facility], [address] [address] PCP - General Nurse Practitioner Family 11/27/2208/23 [place] [address] [facility], [address] [address] PCP - General INTERNAL MEDICINE 08/21/22 11/26/22 None, Provider, PCP - General UNKNOWN PHYSICIAN SPECIALTY 09/03/23 1 [place] [address] [place] [address] PCP - General INTERNAL MEDICINE 06/09/24 documented as of this encounter
--- OUTSIDE RECORDS SUMMARY | 2024-10-27 07:52 | XMS_ITS | Encounter Summary ---
Author Organization [facility] Address [facility] [place] [address] Care Team Providers Care Health Care Liaison Name Role Phone Ish Rudd MD Primary Care Provider U Joyce Márquez NP Primary Care Provider [phone] Ish Rudd MD Primary Care Provider U navsly None, Provider Primary Care Provider Marcela Freed MD Primary Care Provider [phone] Encounter Details Date Type Department Care Team (Latest Contact Info) Description 06/28/2018 Abstract [facility] Racquel Vega MD Social History Tobacco Use Types Packs/Day Years Used Date Smoking Tobacco: Never Assessed Comments Unknown Sex and Gender Information Value Date Recorded Sex Assigned at Female 09/12/2024 7:42 AM [employer] Legal Sex Female 5:36 PM CDT Gender Identity Female 09/12/2024 8:05 AM [employer] Sexual Orientation Straight 09/12/2024 8: 05 AM [employer] documented as of this encounter Plan of Treatment Upcoming Encounters Date Type Department Care Team (Late st Contact Info) Description 10/27/2024 11:15 AM [employer] Appointment [facility] [address] [place], [place] [id number] [place] [address] [address] [place] [address] [place] [address] [place] [address] 10/31/2024 10:00 AM CDT Appointment [facility] [address] [place] [address] [place] [address] [address] [place] [address] [place] [address] 11/02/2024 9:00 AM CDT Appointment [facility] [address] [place] [address] [place] [address] [address] Yamileth Elise, SHIP [employer]ER 11/08/2024 10:00 AM CDT Appointment [facility] [address] [place] [address] [place] [address] [address] [place] [address] [place] [address] 11/16/2024 8:00 AM CDT Appointment [facility] [address] [place] [address] [place] [address] [place] [address] 03/13/2025 7:40 AM CDT Office Visit [facility] Family [facility] [address] [place] [phone] [place] [address] [facility] [address] [place] [address] documented as of this encounter Visit Diagnoses Not on filedocumented in this encounter Additional Health Concerns Infection Onset Date Last Indicated Resolved Time COVID-19 Rule Out 01/30/2020 01/30/2020 02/02/2020 8:13 AM CDT COVID-19 Rule Out 09/24/2023 09/24/2023 09/24/2023 8:25 AM [employer] documented as of this encounter Care Teams Health Care Liaison Relationship Specialty Start Date End Date Ish Rudd MD PCP - General INTERNAL MEDICINE 10/14/18 08/20/22 [place] [address] [facility], [address] [place] [address] PCP - General Nurse Practitioner Family 11/27/2208/23 Ish Rudd MD PCP - General INTERNAL MEDICINE 08/21/22 11/26/22 None, ProviderMD PCP - General UNKNOWN PHYSICIAN SPECIALTY 09/03/23 06/08/24 [place] [address] [facility] [address] [place] [address] PCP - General INTERNAL MEDICINE 06/09/24 documented as of this encounter
--- OUTSIDE RECORDS SUMMARY | 2024-10-27 07:53 | XMS_ITS | Data Portability ---
Author Organization [facility] Address [address] [place] [address] Assessment Encounter Date Assessment Date Assessment LastModified by Organization Details LastModified Time 06/19/2024 06/19/2024 Annual gynecological exam performed. Patient will come back in a year unless there are new symptoms. [email or web address] Not available 06/19/2024 15:36:26 Plan of Treatment Reminders Order Date Submit Date Provider Last Modified By Organization Details Last Modified Time Details Appointments None recorded . Lab None recorded . Referral None recorded . Procedures None recorded . Surgeries None recorded . Imaging None recorded . Medication Orders 09/11 (21) 1 mg-20 mcg tablet 024 06/19/20 [facility]/Pharmacy #[id number], [address], [place], [address], 16:30:56 Patient TargetsNo targets recorded. Patient InstructionsNo instructions recorded. Reason for Referral None Reported. Results Created Date Observation Date Name Description Value Unit Range Abnormal Flag Note LastModifiedBy Organization Detail LastModifiedTime 06/19/20 24 06/19/2024 IMAGE GUIDE D PAP AND HPV REGAR DLESS image guided Pap, HPV regardless of Pap result SEE RESULT S BELOW CASE REPOR T: Cytol ogy Gynec ologi mini Repor t Case: [id number] Autho rizin g Provi yanna: Giorgi Torres MD Colle cted: 06/19 1607 Order ing Locat ion: [place] Path[facility] Recei judy: 06/20 0822 First Scree n: Anna Marie Burch Speci men: Carline mccollum Pap - Image d, Cervi x STATE MENT OF ADEQU ACY: Satis facto ry for evalu ation Trans forma tion zone compo nent prese nt ----- ----- ----- ----- ----- ----- ----- ----- ----- ----- ----- ----- ----- ----- ----- ----- ----- ---- FINAL DIAGN OSIS: Negat thien for Intra epith elial Lis cordon or Irving lott ([facility]) . Elect lee ann pastrana kareen d by Anna Marie Burch ica on 2023 at 10:50 AM ----- ----- ----- ----- ----- ----- ----- ----- ----- ----- ----- ----- ----- ----- ----- ----- ----- ---- HPV RESUL TS: HPV mRNA E6/E7 : No HPV mRNA Detec olivia NOTE: This high risk HPV mRNA assay detec ts fourt een high- risk HPV types (16, 18, 31, 33, 35, 39, 45, 51, 52, 56, 58, 59, 66, 68) witho ut diffe renti ation . COMME NT: This speci men was revie wed by a Cytot echno logis t and/o r Patho logis t (as indic ated in this repor t) after evalu ation using the Thinp rep Imagi ng Syste m. CLINI MINI INFOR MATIO N: Menst rual Statu s: LMP (if appli cable ): Clini mini Histo ry/Pr eviou s Pap: Type of Neopl dora (if appli cable ): Signi fican t Clini mini Findi ngs: Other Histo ry: Hormo bret (if appli cable ): PAP EDUCA BRAYAN L NOTE: The Pap Test is a scree chun test with an inher ent false negat thien rate. Liqui d-bas ed sampl ing may decre ase, but will not elimi ghanshyam, false negat thien resul ts. A negat thien resul t does not precl ude the prese nce and/o r devel opmen t of disea se, since the prese nce of abnor mal cells in the sampl e depen ds on the locat ion of the lesio n and sampl ing techn ique. Anu nued regul ar scree chun is the best metho d of cance r preve ntion . If repor olivia cytol ogic findi ng do not corre late with physi mini and/o r histo rical findi ngs, furth er inves tigat ion is recom lei d, as clini tristan warra nted. Not Available [facility] (Lab) [address], [place], [address], 06/25/2024 11:53:30 Result Notes None recorded. Problems Name Problem SNOMED Code Status Onset Date Resolution Date Notes Provider Name and Address Organization Details Recorded Time Increased frequency of urination 998414815 Active 2011 Urinary frequency; Practice ID: 0001 Not Available [facility] 0 17:48:36 History of tubal ligation 148735271 Active 2011 Tubal ligation status;Pra ctice ID: 0001 Not Available [facility] 0 17:48:36 Specializ ed medical examinati on Active 2012 Routine gynecologi mini examinatio n;Practice ID: 0001 Not Available [facility] 0 17:48:36 Screening for malignant neoplasm of cervix Active 2012 Pap Smear;Prac martín ID: 0001 Not Available [facility] 0 17:48:36 Screening for malignant neoplasm of rectum Active 2012 Screening for malignant neoplasms of the rectum;Pra ctice ID: 0001 Not Available [facility] 0 17:48:36 Overweigh t 406824877 Active 2014 Overweight ;Practice ID: 0001 Not Available [facility] 0 17:48:36 Adult health examinati on Active 2014 Routine general medical examinatio n at a health care facility;P ractice ID: 0001 Not Available [facility] 0 17:48:[address] Concept Active 2016 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) (routine) w/o abn findings;P ractice ID: 0001 Not Available [facility] 0 17:48:36 Alopecia 64602366 Active 2017 Nonscarrin g hair loss, unspecifie d;Practice ID: 0001 Not Available [facility] 0 17:48:36 Procedure on genitouri nary system Active 2011 Sterilizat ion;Record ed Elsewhere: No Locatio n: [facility] rce: EHR Chroni c: N Practice ID: 0001 Billa ble Time: 05:15:00 PM Not Available [facility] 0 17:48:37 Radiologi c finding 090313340 Active 2016 Oth abn and inconclusi ve findings on dx imaging of breast;Rec orded Elsewhere: No Locatio n: [facility] rce: EHR Chroni c: N Practice ID: 0001 Billa ble Time: 11:40:59 AM Not Available [facility] 0 17:48:37 test negative 066991830 Active 2011 examinatio n or test, negative result;Rec orded Elsewhere: No Locatio n: [facility] rce: EHR Chroni c: N Practice ID: 0001 Billa ble Time: 03:00:00 PM Not Available [facility] 0 17:48:37 Body mass index 25-29 - overweigh t 532074653 Active 2016 Body mass index (BMI) 28.0-28.9, adult;Sathya rded Elsewhere: No Locatio n: [facility] rce: EHR Chroni c: N Practice ID: 0001 Billa ble Time: 02:30:00 PM Not Available [facility] 0 17:48:[address] Concept Active 2016 Encntr for general adult medical exam w/o abnormal findings;R ecorded Elsewhere: No Locatio n: [facility] rce: EHR Chroni c: N Practice ID: 0001 Billa ble Time: 02:30:00 PM Not Available [facility] 0 17:48:37 Family planning surveilla nce Active 2011 Contracept thien surveillan ce, unspecifie d;Recorded Elsewhere: No Locatio n: [facility] Lauren rce: EHR Chroni c: N Practice ID: 0001 Billa ble Time: 03:30:00 PM Not Available [facility] 0 17:48:37 Pre-surge ry evaluatio n Active 2011 Pre-operat thien examinatio n, unspecifie d;Practice ID: 0001 Not Available [facility] 0 17:48:38 Problem Notes None recorded. Procedures Surgical History Date Name Laterality Status Provider Name and Address Organization Details Recorded Time 06/11/2023 Date of Last Pap Smear completed Kalee Marino [facility] 06/19/2024 15:42:40 Imaging Results None recorded. Procedure Notes None recorded. Medical Equipment None Reported. Allergies No known drug allergies Medications Name Sig Start Date Stop Date Status Note LastModified by Organization Details LastModified Time cyclobenz aprine 10 mg tablet TAKE 1 TABLET BY MOUTH TWICE A DAY NEEDED FOR MUSCLE SPASMS 06/19 completed Not Available Not Available Not Available fluconazo le 150 mg tablet TAKE 1 TABLET BY MOUTH 06/19 completed Not Available Not Available Not Available Vicodin 5 mg-500 mg tablet 2 tabs po 2 hours before procedur e and 1-2 tabs every 4 hours as need post op for pain 07/06 completed Prescrib ed Elsewher e: No Locat ion: [facility] M odify By: alfonso huitron DateTime : 12/03/19 12 03:30:00 PM Not Available Not Available Not Available ondansetr on HCl 4 mg tablet active Not Available Not Available No t Available Zomig 2.5 mg tablet take 1 tablet by oral route once; if headache returns, the dose may be repeated after 2 hours, notto exceed 10 mg within 24 hours 06/19 completed Prescrib ed Elsewher e: Yes Loca tion: Ricky doherty [facility] odify By: shaylee huitron DateTime : 09/20/19 15 11:30:00 AM Not Available Not Available Not Available ciproflox acin 250 mg tablet TAKE 1 TABLET BY MOUTH 2 TIMES DAILY FOR 5 DAYS. 06/19 completed Not Available Not Available Not Available tramadol 50 mg tablet TAKE 1 TABLET BY MOUTH TWICE A DAY NEEDED FOR PAIN active Not Available Not Available No t Available ketorolac 10 mg tablet active Not Available Not Available Not Available Celebrex 200 mg capsule 200mg po the night before and 400mg po morning of the procedur e 07/06 completed Prescrib ed Elsewher e: No Locat ion: Buddy bessy [facility] odify By: alfonso huitron DateTime : 12/03/19 12 03:30:00 PM Not Available Not Available Not Available lidocaine 5 % topical patch 06/19 completed Not Available Not Available Not Available Ortho-Nov um (28) 1 mg-35 mcg tablet take 1 tablet by oral route every day 07/06 completed Prescrib ed Elsewher e: No Locat ion: [facility] odify By: alfonso huitron DateTime : 02/15/20 12 03:56:34 PM Not Available Not Available Not Available nystatin- triamcino lone 100,000 unit/g-0. 1 % topical cream APPLY A THIN LAYER TO AFFECTED AREA TWICE DAILY FOR 4 WEEKS. (PERINEU M, ANUS) 06/19 completed Not Available Not Available Not Available gabapenti n 300 mg capsule PLEASE SEE ATTACHED FOR DETAILED DIRECTIO NS active Not Available Not Available No t Available hydroxyzi ne HCl 25 mg tablet take 1 tablet (25MG) by oral route 4 times every day 12/13 completed Prescrib ed Elsewher e: No [facility] By: shaylee huitron DateTime : 12/03/19 12 03:30:00 PM Not Available Not Available Not Available clobetaso l 0.05 % topical ointment APPLY TO RASH TWICE A DAY NEEDED FOR 14 DAYS 06/19 completed Not Available Not Available Not Available diazepam 10 mg tablet take 1 tablet (10MG) po 1-2 hours before procedur e 07/06 completed Prescrib ed Elsewher e: No Locat ion: Zurij[facility]ine bess[facility] odify By: alfonso huitron DateTime : 12/03/19 12 03:30:00 PM Not Available Not Available Not Available methylpre dnisolone 4 mg tablets in a dose pack TAKE 6 TABLETS ON DAY 1 DIRECTED ON PACKAGE AND DECREASE BY 1 TAB EACH DAY FOR A TOTAL OF 6 DAYS 06/19 completed Not Available Not Available Not Available sumatript an 20 mg/actuat ion nasal spray spray 1 spray by intranas al route once; if headache returns, the dose may be repeated once after 2 hours, not to exceed a total daily dose of 40 mg 07/06 completed Prescrib ed Elsewher e: Yes Loca tion: [facility] odify By: alfonso huitron DateTime : 12/03/19 12 03:30:00 PM Not Available Not Available Not Available ketorolac 60 mg/2 mL intramusc ular solution inject 1 millilit er (30MG) by intramus cular route bring with you to office 07/06 completed Prescrib ed Elsewher e: No Locat ion: [facility]ine bess[facility] odify By: alfonso huitron DateTime : 12/03/19 12 03:30:00 PM Not Available Not Available Not Available amoxicill in 875 mg-potass ium clavulana te 125 mg tablet TAKE 1 TABLET BY MOUTH TWICE A DAY FOR 10 DAYS 06/19 completed Not Available Not Available Not Available Topamax 15 mg sprinkle capsule take 1 capsule by oral route 2 times every day in the morning and evening 12/13 completed Prescrib ed Elsewher e: Yes Loca tion: [facility] odify By: shaylee huitron DateTime : 09/20/19 15 11:30:00 AM Not Available Not Available Not Available cyclobenz aprine 5 mg tablet TAKE 1 TABLET BY MOUTH THREE TIMES A DAY NEEDED FOR MUSCLE SPASMS active Not Available Not Available No t Available InnoPran XL 80 mg capsule,e xtended release take 1 capsule by oral route every day at bedtime 07/06 completed Prescrib ed Elsewher e: Yes Loca tion: [facility] odify By: alfonso huitron DateTime : 12/03/19 12 03:30:00 PM Not Available Not Available Not Available 09/11 (21) 1 mg-20 mcg tablet TAKE 1 TABLET BY MOUTH EVERY DAY FOR CONTINUO US USE 2024 active Not Available Not Available Not Avai lable B-12 Plus 5,000 mcg-100 mcg sublingua l tablet active Prescrib ed Elsewher e: Yes [facility] odify By: milan wei DateTime : 12/03/19 12 03:30:00 PM Not Available Not Available Not Available Nurtec ODT 75 mg disintegr ating tablet ONE TABLET BY MOUTH EVERY OTHER DAY. MAX DOSE 75MG IN 24 HR. active Not Available Not Available No t Available Vitals Date Recorded Body weight Body mass index (BMI) Body height Systolic blood pressure Diastolic blood pressure Provider Name and Address Organization Details Last Updated DateTime 06/19/2024 41140.7 g 28.3 kg/m2 177.8 cm 119 mm[Hg] 78 mm[Hg] Kalee Marino [facility] 15:39:52 Social History Question Answer Notes LastModified by Organizat ion Details LastModified Time What Is Your Level Of Alcohol Consumption? Occasional [email or web address] Information not available 06/19/2024 Are You Blind Or Do You Have Difficulty Seeing? No [email or web address] Information not available 06/19/2024 What Is Your Level Of Caffeine Consumption? Occasional Information not available 06/19/2024 In The 14 Days Before Symptom Onset, Have You Had Close Contact With A Laboratory-confir med COVID-19 While That Case Was Ill? No [email or web address] Information not available 06/19/2024 In The 14 Days Before Symptom Onset, Have You Had Close Contact With A Person Who Is Under Investigation For COVID-19 While That Person Was Ill? No [email or web address] Information not available 06/19/2024 Have You Been To An Area Known To Be High Risk For COVID-19? No [email or web address] Information not available 06/19/2024 Are You Deaf Or Do You Have Serious Difficulty Hearing? No [email or web address] Information not available 06/19/2024 What Type Of Diet Are You Following? REGULAR [email or web address] Information not available 06/19/2024 What Is The Highest Grade Or Level Of School You Have Completed Or The Highest Degree You Have Received? BI56395-1 [email or web address] Information not available 06/19/2024 What Is Your Occupation? [employer] [email or web address] Information not available 06/19/2024 Are There Any Guns Present In Your Home? No [email or web address] Information not available 06/19/2024 Do You Use Protection During Sex? No [email or web address] Information not available 06/19/2024 Do You Use Your Seat Belt Or Car Seat Routinely? Yes Information not available 06/19/2024 Do You Have Smoke And Carbon Monoxide Detectors In Your Home? Yes [email or web address] Information not available 06/19/2024 How Much Tobacco Do You Smoke? No [email or web address] Information not available 06/19/2024 Do You Feel Stressed (tense, Restless, Nervous, Or Anxious, Or Unable To Sleep At Night)? [id number] Information not available 06/19/2024 Do You Use Any Illicit Or Recreational Drugs? No [email or web address] Information not available 06/19/2024 Do You Use Sunscreen Routinely? Yes [email or web address] Information not available 06/19/2024 Have You Used IV Drugs? No [email or web address] Information not available 06/19/2024 Sex: Unknown Functional Status Question Answer Note LastModified by Organizat ion Details LastModified Time Are you able to walk? [email or web address] Information not available 06/19/2024 What is your exercise level? Occasional [email or web address] Information not available 06/19/2024 Mental Status None recorded. Family History Nothing Reported Notes:Father: Diabetes melli tus Paternal grandfather: Diabetes mellitus Medical History No medical history recorded. Gynecological History Statement/Question Response Abnormal Pap N Sexually Active? N Age of first menstrual cycle 16 Date of Last Pap Smear 06/11/2023 Sexual Problems? N Current Control Method Other Desired Control Method Unknown LMP Unknown Obstetrics History GPAL:G 2 P 2 0 0 2 Type Value Full Term 2 Living 2 Total 2 Past Encounters Encounter ID Performer Location Encounter Start Date Encounter Closed Date Diagnosis/Indication Diagnosis SNOMED-CT Code Diagnosis ICD10 Code Diagnosis Note [id number] XAVIER NAILS MD [facility] [address] [address] 06/19/2024 15:17:23 06/19/2024 17:12:01 Gynecologic examination 12283469 Z01.419 [facility]- Cervical cancer screening: Pap smear obtained today, will follow up on the results with the patient as they become available- Breast cancer screening: mammogram to be scheduled- HPV immunizati on: does not qualify- STD testing: declined- hereditary cancer screening: does not qualify for testing Health Concerns Section Related Observation LastModified by Organization Detai ls LastModified Time None Recorded Concern Status LastModified by Organization Details LastModified Time None Recorded Advance Directives Directive None Recorded Payers Encounter Date Sequence Insurance Name Policy Number Policy Delgado Covered Member ID Delgado Member ID Guarantor Name 06/19/2024 1 [facility] [id number] [facility] [id number] [facility] Notes Date Note Type Note Provider Name and Address Organization Details Recorded Time 06/19/2024 text/html Presents today for her annual well-woman exam. Denies abnormal vaginal discharge. She is not sexually active. She has not noticed any changes or masses in her breasts. Needs to schedule mammogram for this year. No family hx of cancer. No hx of abnormal pap smear. Hx of Essure 2011. No pain. On for menstrual migraines. XAVIER NAILS MD [address], [place], [address], [facility] 06/19/2024 16:31:05 OBGyn Episode Ob Episode Information Episode Created Date Number of Fetuses Patient Bloodtype Patient rh Status Prepregnancy Weight lbs Domestic Partner Domestic Partner Phone Father Name Security Associate Status 06/19/20 24 1 CLOSED Fetus Data First Name Last Name Admitted to NICU Weight (g) Sex Living Outcome Pediatric Complications Fetus ID Race Codes Race Delivery Type M Full Term [id number] Vaginal Delivery Bereket Calculation Initial Bereket Date Initial Exam Date Initial Exam Provider Initial Ultrasound Date Last Menstrual Period Date Ultra Sound Weeks Gestation 0 Eighteen To Twenty Week Bereket Update Ultra Sound Date Fundal Height At Umbil Quickening Date Ultra Sound Latest Weeks Gestation Final Bereket Confirmed By Final Bereket Confirmed Date Final Bereket Date Ultra Sound Latest Days Gestation 0 0 Menstrual History Last Menstrual Date Menses Monthly On Bcp Conception Prior Menses Frequency Hcg Plus Date Menarche Onset Age Delivery Information Delivery Date Delivery Type Labor Anesthesia Weeks Gestation Incision Type Labor Labor Length Hrs Delivered By Post Complications Tubal Sterilization Discharge Date Comments 5 Discharge Information Feeding Method Contraceptive Method Maternal HG B and HCT Levels Ob Episode Information Episode Created Date Number of Fetuses Patient Bloodtype Patient rh Status Prepregnancy Weight lbs Domestic Partner Domestic Partner Phone Father Name Security Associate Status 06/19/20 24 1 CLOSED Fetus Data First Name Last Name Admitted to NICU Weight (g) Sex Living Outcome Pediatric Complications Fetus ID Race Codes Race Delivery Type F Full Term [id number] Vaginal Delivery Bereket Calculation Initial Bereket Date Initial Exam Date Initial Exam Provider Initial Ultrasound Date Last Menstrual Period Date Ultra Sound Weeks Gestation 0 Eighteen To Twenty Week Bereket Update Ultra Sound Date Fundal Height At Umbil Quickening Date Ultra Sound Latest Weeks Gestation Final Bereket Confirmed By Final Bereket Confirmed Date Final Bereket Date Ultra Sound Latest Days Gestation 0 0 Menstrual History Last Menstrual Date Menses Monthly On Bcp Conception Prior Menses Frequency Hcg Plus Date Menarche Onset Age Delivery Information Delivery Date Delivery Type Labor Anesthesia Weeks Gestation Incision Type Labor Labor Length Hrs Delivered By Post Complications Tubal Sterilization Discharge Date Comments 8 Discharge Information Feeding Method Contraceptive Method Maternal HG B and HCT Levels
--- OUTSIDE RECORDS SUMMARY | 2024-10-27 07:53 | XMS_ITS | Encounter Summary ---
Author Organization [facility] Address [address] [place] [address] Care Team Providers Care [employer] Name Role Phone Marcela Hoffman MD Primary Care Provider [phone] Encounter Details Date Type Department Care Team (Late st Contact Info) Description 09/15/2024 Webymastert Message Enc 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 Not on file Not on file Not on file documented as of this encounter Plan of Treatment Upcoming Encounters Date Type Department Care Team (Late st Contact Info) Description 10/27/2024 11:15 AM 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 Appointment [facility] [address] [place] [address] [place] [address] [address] [place] [address] [place] [address] 10/31/2024 10:00 AM CDT Appointment [facility] [address] [place] [address] [place] [address] [address] [place] [address] [place] [address] 11/02/2024 9:00 AM CDT Appointment [facility] [address] [place] [address] [place] [address] [address] Yamileth Elise, FUNCTIONAL SUPPORT ANALYST 11/08/2024 10:00 AM CDT Appointment [facility] [address] [place] [address] [place] [address] [address] [place] [address] [place] [address] 11/16/2024 8:00 AM CDT Appointment [facility] [address] [place] [address] [place] [address] [place] [address] 03/13/2025 7:40 AM CDT Office Visit 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
--- OUTSIDE RECORDS SUMMARY | 2024-10-27 07:53 | XMS_ITS | Encounter Summary ---
Author Organization [facility] Address [address] [place] [id number] Care Team Providers Care Brush Clearer Surveying Name Role Phone None, Provider Primary Care Provider aMrcela Freed MD Primary Care Provider [phone] Encounter Details Date Type Department Care Team (Late st Contact Info) Description 06/07/2024 Mercari Message Enc [facility] [address] [place] [address] [place] [address] [place] [address] Pain Social History Tobacco Use Types Packs/Day Years Used Date Smoking Tobacco: Former Cigarettes 0.3 15 0 08/23/1988 - 08/23/2003 Smokeless Tobacco: Never Alcohol Use Standard Drinks/Week Comments Yes 0 (1 standard drink = 0.6 oz pur e alcohol) Socially PHQ-2 Answer Date Recorded Patient Health Questionnaire-2 Score 0 09/24/2023 Education Answer Date Recorded What is the highest level of school you have completed or the highest degree you have received? 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 documented in this encounter Plan of Treatment Upcoming Encounters Date Type Department Care Team (Late st Contact Info) Description 10/27/2024 11:15 AM CONTROL ROOM TENDER Appointment [facility] [address] [facility] [place] [address] [place] [address] [address] [place] [address] [place] [address] 10/31/2024 10:00 AM CDT Appointment [facility] [address] [place] [address] [place] [address] [address] [place] [address] [place] [address] 11/02/2024 9:00 AM CDT Appointment [facility] [address] [place] [address] [place] [address] [address] Yamileth Elise, 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 11/08/2024 10:00 AM CDT Appointment [facility] [address] [place] [address] [place] [address] [address] [place] [address] [place] [address] 11/16/2024 8:00 AM CDT Appointment [facility] [address] [place] [address] [place] [address] [place], [place] [id number] 03/13/2025 7:40 AM CDT Office Visit [facility] [address] [place] [address] [place] [address] [address] documented as of this encounter Visit Diagnoses Not on filedocumented in this encounter Additional Health Concerns Assessment Noted Time PHQ-9 Depression Total Score: 0 06/23/20 21 9:26 AM CDT documented as of this encounter Care Teams Brush Clearer Surveying Relationship Specialty Start Date End Date None, Provider, PCP - General UNKNOWN PHYSICIAN SPECIALTY 09/03/23 06/08/24 [place] [address] [address] PCP - General INTERNAL MEDICINE 06/09/24 documented as of this encounter
== END 2024-10-27 07:47 | disposition home or self-care (01) ==
PROVIDERS: PCP Internal Medicine; Visit Provider Obstetrics & Gynecology
DX: Z12.31 Encounter for screening mammogram for malignant neoplasm of breast (principal)
CPT/HCPCS: 77063; 77067